=== PATIENT | male | born 2005 | race Caucasian/White ===

== ENCOUNTER 2023-08-16 12:46 | Emergency (ER) | payer OTHER, SELFPAY ==
[2023-08-16 12:49] VITALS: BP 177/99; PULSE 97; RESP 24; TEMP 36.6; O2SAT 99; BMI 39.3
--- NOTE | 2023-08-16 13:30 | ED_ITS ---
HPI - Burn/Smoke Inhalation <CLAUDIA Barrett - Last Filed: 08/16/23 13:40> General Chief complaint: Burn/Smoke Inhalation Stated complaint: burned with boiling water Time Seen by Provider: 08/16/23 13:02 Source: patient Mode of arrival: Ambulatory History of Present Illness HPI Narrative: 18-year-old male, never smoker, presents to the emergency department with a burn to his left forearm. 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 Patient is in visible discomfort. Left forearm is very red and warm, without any visible blisters at this time. Related Data Previous Rx's Medication Instructions Recorded oxycodone-acetaminophen 5 mg-325 1 tab PO Q6H PRN pain #10 tabs 08/16/23 mg tablet (Percocet) silver sulfadiazine 1 % topical 1 applic topical BID PRN wound 08/16/23 cream healing #50 grams Allergies Allergy/AdvReac Type Severity Reaction Status Date / Time No Known Drug Allergies Allergy Verified 08/16/23 12:49 Review of Systems <CLAUDIA Barrett - Last Filed: 08/16/23 13:40> Review of Systems Narrative: Narrative: See HPI. GENERAL: Denies chills, fatigue, fever, sweats. HEENT: Denies sinus pain, ear pain, sore throat, difficulty swallowing, dizziness. RESPIRATORY: Denies dyspnea, cough, wheezing, sputum. CARDIOVASCULAR: Denies chest pain, palpitations, edema. GASTROINTESTINAL: Denies nausea, vomiting, abdominal pain, diarrhea, constipation. : Denies dysuria, frequency, incontinence, hematuria, urinary retention, flank pain. MSK: Denies weakness, joint pain, or bony pain. SKIN: Denies rash, skin lesions, or pruritis. Endorses burn to left forearm. NEUROLOGIC: Denies weakness, dizziness, headache, numbness, confusion. PSYCHIATRIC: No concerning psychosocial issues. Patient History <CLAUDIA Barrett - Last Filed: 08/16/23 13:40> Social History Smoking Status: Never smoker Smoking Status: Never smoker Substance Use Type: does not use Exam <CLAUDIA Barrett - Last Filed: 08/16/23 13:40> Narrative Exam Narrative: Exam Narrative: GENERAL: This is a well-nourished, well-developed patient, in no acute distress HEAD: Atraumatic. Normocephalic. RESPIRATORY: Respiratory rate and effort are normal. MSK: Moves all extremities. Normal range of motion, no clubbing or edema. Neurovascularly intact. NEURO: A&O x 3. SKIN: Warm, dry, no rashes or lesions noted. First-degree burn noted to left forearm covering 5% of body. Cool compresses applied, which patient reports held the he did and worsened symptoms. Symptoms improved with running under cold water. Initial Vital Signs Initial Vital Signs: Vital Signs Temperature 98 F 08/16/23 12:49 Pulse Rate 97 H 08/16/23 12:49 Respiratory Rate 24 08/16/23 12:49 Blood Pressure 177/99 H 08/16/23 12:49 Pulse Oximetry 99 08/16/23 12:49 Oxygen Delivery Method Room Air 08/16/23 12:49 Reviewed <Renan Kramer DO - Last Filed: 08/16/23 14:05> Initial Vital Signs Initial Vital Signs: Vital Signs Temperature 98 F 08/16/23 12:49 Pulse Rate 97 H 08/16/23 12:49 Respiratory Rate 24 08/16/23 12:49 Blood Pressure 177/99 H 08/16/23 12:49 Pulse Oximetry 99 08/16/23 12:49 Oxygen Delivery Method Room Air 08/16/23 12:49 Course <CLAUDIA Barrett - Last Filed: 08/16/23 13:40> Orders Ordered: Discontinued Medications Oxycodone/Acetaminophen (Oxycodone/Acetaminophen 5/325 Tablet) 1 tab PO NOW ONE Stop: 08/16/23 13:54 Last Admin: 08/16/23 13:56 Dose: 1 tab Documented By: GENET Silver Sulfadiazine (Silver Sulfadiazine 1% Cream 400 Gm) 1 applic TOP NOW ONE Stop: 08/16/23 13:24 Last Admin: 08/16/23 13:39 Dose: 1 applic Documented By: GENET Vital Signs Vital signs: Vital Signs - 8 hr 08/16/23 12:49 08/16/23 14:03 Temperature 98 F Pulse Rate 97 H 89 Respiratory Rate 24 20 Blood Pressure 177/99 H 160/90 H Pulse Oximetry 99 99 Oxygen Delivery Method Room Air Room Air <Renan Kramer DO - Last Filed: 08/16/23 14:05> Orders Ordered: Discontinued Medications Oxycodone/Acetaminophen (Oxycodone/Acetaminophen 5/325 Tablet) 1 tab PO NOW ONE Stop: 08/16/23 13:54 Last Admin: 08/16/23 13:56 Dose: 1 tab Documented By: GENET Silver Sulfadiazine (Silver Sulfadiazine 1% Cream 400 Gm) 1 applic TOP NOW ONE Stop: 08/16/23 13:24 Last Admin: 08/16/23 13:39 Dose: 1 applic Documented By: GENET Vital Signs Vital signs: Vital Signs - 8 hr 08/16/23 12:49 08/16/23 14:03 Temperature 98 F Pulse Rate 97 H 89 Respiratory Rate 24 20 Blood Pressure 177/99 H 160/90 H Pulse Oximetry 99 99 Oxygen Delivery Method Room Air Room Air MDM - Burn/Smoke Inhalation <CLAUDIA Barrett - Last Filed: 08/16/23 13:40> Differential Diagnosis Differential diagnosis: Likely other (First-degree burn) MDM Narrative Medical decision making narrative: 18-year-old male with first-degree burn of left forearm. L&I. Patient directed to run forearm under running cool water for immediate pain relief. Site was treated with silver Silvadene and wrapped with sterile dressing. Will discharge patient home with sore Silvadene and short course of pain medication. L&I paperwork completed in its entirety. Discussed plan of care with patient, who verbalized understanding and was agreeable with course of action. Discharge Plan Departure Patient Disposition: Home Clinical Impression: Burn of upper extremity Qualifiers: Encounter type: initial encounter Upper extremity location: forearm Laterality: left Burn degree: superficial (1st degree) Qualified Code(s): T22.112A - Burn of first degree of left forearm, initial encounter Instructions: DI for [place] Activity Restrictions/Additional Instructions: *You have been diagnosed with a first-degree burn to your left forearm. Cool water or compresses is always the 1st treatment for any type of burn. Will have applied silver Silvadene cream tear forearm, which should help with the discomf ort and wound healing. You may return to work next Sunday if feeling better. Please take this time to heal up. You should start taking ibuprofen 800 mg 3 times a day with food for the next 3-5 days. We will provide you a short course of pain medication for breakthrough pain. Please return to the emergency department for any intolerable pain, shortness of breath or chest pain. *What to do: *Please continue to take your regular medications as directed. [x ] New medication prescriptions sent to your pharmacy: [ [place] [facility]] [ ] New medication written as a paper prescription [ ] No new medications given *Please follow up with your primary care provider in 2-3 days, call for an appointment. Let them know you were seen in the Emergency Department and that we ask that you be seen in follow up. We will electronically transmit a record of today's note if your PCP is in our system *If you do not have a primary care provider please contact the [facility] Resource line at [phone]. They will ask some questions about your medical history and help get you set up with a doctor in the community. ? Return to ER if you should have any new, worsening or concerning symptoms, such as worsening pain, severe headache, confusion, chest pain, difficulty breathing, fever greater than 101 F, shaking chills, persistent vomiting to the point that you cannot drink fluids, or other new or worsening symptoms. Prescriptions: New silver sulfadiazine 1 % cream 1 applic topical BID PRN (Reason: wound healing) Qty: 50 0RF Rx Instructions: apply a 1.5 mm thickness to the affected site oxycodone-acetaminophen [Percocet] 5-325 mg tablet 1 tab PO Q6H PRN (Reason: pain) Qty: 10 0RF Referrals: Miscellaneous,Doctor, MD [Primary Care Provider] - Stand Alone Forms: Patient Portal/API, Work Release Note ED Sign-out <Renan Kramer, - Last Filed: 08/16/23 14:05> Cosign ED Attending Coslópezature Attestation: Dr Kramer Co-Sign Statement: I was available for consultation during this patient's emergency department visit. This chart is signed by myself for administrative purposes only. I did not have direct contact with this patient during this visit. They were seen independently by the APC.
[2023-08-16] MEDS: SILVER SULFADIAZINE 1% CREAM 400 GM 1 APPLIC TOP (13:39)
[2023-08-16] MEDS: OXYCODONE/ACETAMINOPHEN 5/325 TABLET 1 TAB PO (13:56)
[2023-08-16 14:03] VITALS: BP 160/90; PULSE 89; RESP 20; O2SAT 99
== END 2023-08-16 14:04 | disposition home or self-care (01) ==
PROVIDERS: Emergency Provider Registered Nurse
DX: T22.112A Burn of first degree of left forearm, initial encounter (principal); X12.XXXA Contact with other hot fluids, initial encounter
CPT/HCPCS: 99283